=== PATIENT | female | born 1975 | race Caucasian/White ===

== ENCOUNTER 2023-09-25 11:00 | Emergency (ER) | payer MEDICAID, SELFPAY ==
[2023-09-25 11:04] VITALS: BP 127/83; PULSE 80; RESP 16; TEMP 36.1; O2SAT 99; BMI 24.8
--- NOTE | 2023-09-25 11:05 | ED_ITS ---
HPI - General Adult General Chief complaint: Extremity Problem Stated complaint: Swollen Finger Time Seen by Provider: 09/25/23 11:53 Source: patient Mode of arrival: ambulatory Limitations: no limitations History of Present Illness HPI narrative: 48 yo female right hand dominant here with complaints of wood splinter under right hand 3rd digit x several days. Tried to remove it at home but it broke off under her nail. Now has redness and swelling to the site. No fevers, chills. Related Data Previous Rx's Medication Instructions Recorded cephalexin 500 mg capsule 500 mg PO BID #14 caps 09/25/23 Allergies Allergy/AdvReac Type Severity Reaction Status Date / Time No Known Allergies Allergy Verified 09/25/23 11:04 [No Known Allergies*] Review of Systems Review of Systems: Yes all other systems are reviewed and are negative Constitutional: Constitutional: Reports no additional constitutional complaints, Denies body ache(s), Denies chills, Denies fever(s), Denies heada fara(s) and Denies weakness Eyes: Eyes: Reports no additional eye complaints and Denies change in vision ENT: Reports system reviewed and no additional complaints, except as documented, Denies dizziness, Denies headache(s), Denies nasal congestion, Denies nasal discharge and Denies neck pain Cardiovascular: Cardiovascular: Reports no additional cardiovascular complaints, Denies chest pain, Denies leg edema and Denies dyspnea Respiratory: Respiratory: Reports no additional respiratory complaints, Denies cough and Denies dyspnea Gastrointestinal: Gastrointestinal: Reports no additional gastrointestinal complaints, Denies abdominal pain, Denies diarrhea, Denies nausea and Denies vomiting Genitourinary: Genitourinary: Reports no additional female genitourinary complaints and Denies urinary incontinence Musculoskeletal: Musculoskeletal: Reports no additional musculoskeletal complaints, Denies back pain, Denies arthralgias, Denies joint swelling, Denies neck pain, Denies numbness and Denies tingling Integumentary/Breasts: Skin/Breast: Reports system reviewed and no additional complaints, except as docu, Reports swelling, Reports erythema and Denies rash Neurologic: Reports system reviewed and no additional complaints, except as documented, Denies Abnormal speech present, Denies dizziness, Denies headache(s), Denies numbness, Denies tingling and Denies weakness [facility] Past Medical History Attestation statement: The following information was validated with the patient. Source: old records reviewed and nursing notes reviewed Social History Social History Advance Directives: No Advance Directives Information Provided: No Physical Exam ED Vital Signs: Vital Signs - 24 hr 09/25/23 11:04 Temperature 97 F Pulse Rate 80 Respiratory Rate 16 Blood Pressure 127/83 Pulse Oximetry 99 Oxygen Delivery Method Room Air BMI result Body Mass Index 24.8 Const General: cooperative, healthy appearing, comfortable and no acute distress Orientation/consciousness: patient oriented x3 Limitations: no limitations HENMT Head: Yes normal to inspection Ears: hearing grossly normal bilaterally General nose exam: Normal external nose present Face and sinus: Yes normal facial exam Mouth: Normal oral and palatal mucosa present Throat: Yes posterior oropharynx normal Eyes General: appearance normal, both eyes and all related structures Pupils: Equal, round and reactive pupils present Neck Neck: Yes normal visual inspection Chest Chest palpation & inspection: normal inspection of the chest Resp Effort & Inspection: normal respiratory effort Auscultation: clear to auscultation bilaterally Cardio Rate: regular rate Rhythm: regular rhythm Peripheral pulses: Peripheral pulses 2+ throughout GI Inspection: Yes normal to inspection Palpation (GI): Soft to palpation and nontender Auscultation: normal bowel sounds Back/Spine/Pelvis Thoracic/Lumbar Spine: thoracic and lumbar spine normal to inspection Skin General skin exam: no rashes or lesions noted Neuro General: patient oriented x3, no focal motor deficits and normal sensation to monofilament Cranial nerves: Yes Equal, round and reactive pupils present Cognition (Neuro): normal cognition Speech: No Abnormal speech present Gait exam (Neuro): Normal gait present Motor exam (neuro): 5/5 motor strength present throughout Extrem Other: Underneath the right hand 3rd digit finger nail there is a FB present there is local erythema, Tenderness and swelling and I am able to express purulent drainage from the site. Full active and passive ROM of the digit Course Course Course Narrative: This is a rapid medical exam: Additional HPI, ROS, PE not included below will be deferred to primary provider. Patient is a 48-year-old right hand dominant female presenting to the emergency department with complaint of pain and swelling to right 3rd finger x 2 days. Was picking something up off the floor and got a wood splinter under distal edge of nail. Splinter is visible. Tried removing at home unsuccessfully. Unsure last tdap. Plan: Tdap Medications Administered Discontinued Medications Generic Name Dose Route Start Last Admin Trade Name Eliane PRN Reason Stop Dose Admin Diphtheria/Tetanus/Acell Pertussis 0.5 ml 09/25/23 11:07 09/25/23 12:10 Diphth,Pertus(Acell),Tet Adult 0.5 Ml Syringe IM 09/25/23 11:08 0.5 ml .ONCE ONE Administration Lidocaine HCl 2 ml 09/25/23 12:21 09/25/23 12:34 Lidocaine Hcl 1 % Mpf 2 Ml Vial INFILTRATI 09/25/23 12:22 2 ml ONCE ONE Administration Lidocaine HCl 2 ml 09/25/23 12:22 09/25/23 12:34 Lidocaine Hcl 1 % Mpf 2 Ml Vial INFILTRATI 09/25/23 12:23 2 ml ONCE ONE Administration Procedures Foreign Body Removal Site: right and hand (3rd digit ) Description of foreign body: other (splinter ) Technique: removal with forceps Confirmed by:: direct visualization Complications: none Post-procedure exam: awake, alert Nerve Block Nerve Block 1: Local Anesthetic: lidocaine 1% Amount of anesthesia used (mL): 3 Side: right Nerve Blocks: digital Procedure Successful: Yes Patient Tolerated Procedure: well Complications: none Medical Decision Making Medical Decision Making MDM Narrative: 48 yo female right hand dominant here with complaints of wood splinter under right hand 3rd digit x several days. Tried to remove it at home but it broke off under her nail. Now has redness and swelling to the site. No fevers, chills. underneath the right hand 3rd digit finger nail there is a FB present there is local erythema, Tenderness and swelling and I am able to express purulent drainage from the site. Full active and passive ROM of the digit See procedure note Tetanus updated in triage Will need antibiotics Differential Diagnosis Differential Diagnoses: The differential diagnosis associated with the presentation includes FB, cellulitis Low suspicion for fracture, tenosynovitis Admission/Observation Consideration of admission/observation: Escalation of care including admission/observation considered Mild cellulitis which does not require IV antibiotics and admission Tests considered The following testing was considered but not selected: low suspician for fracture requiring x-ray Prescription Management I considered prescription management with: Antibiotic Discharge Plan Discharge Clinical Impression: Foreign body finger, Cellulitis Patient Disposition: Home, Self-Care Instructions: Soft Tissue Foreign Body (ED), Cellulitis (ED) Additional Instructions: Warm soaks daily Take the antibiotics as prescribed Return for worsening symptoms Prescriptions: New cephalexin 500 mg capsule 500 mg PO BID Qty: 14 0RF Referrals: Garcia Carrillo MD [Primary Care Provider] - 1 week
[2023-09-25] MEDS: Diphth,Pertus(ACell),Tet Adult 0.5 ML SYRINGE IM (12:10)
[2023-09-25] MEDS: Lidocaine HCl 1 % MPF 2 ML VIAL INFILTRATI ×2 (12:34)
== END 2023-09-25 13:22 | disposition home or self-care (01) ==
PROVIDERS: Emergency Provider Student in an Organized Health Care Education/Training Program; PCP Internal Medicine
DX: S60.452A Superficial foreign body of right middle finger, initial encounter (principal); W45.8XXA Other foreign body or object entering through skin, initial encounter; Y93.9 Activity, unspecified; Y92.9 Unspecified place or not applicable; Y99.9 Unspecified external cause status; L03.011 Cellulitis of right finger
CPT/HCPCS: 10120; 90471; 90715; 99282; 99284